=== PATIENT | female | born 1965 | race African-American/Black ===

== ENCOUNTER 2017-08-26 15:05 | Emergency (ER) | payer MEDICAID ==
[~2017-08-26] VITALS: Ht 167.6 cm; Wt 122.5 kg
[~2017-08-26 15:05] MED LIST: CALC-317 OR; CLOP75TA41; ENAL5TAB92 PO; HYDR-2595; HYDR-4663; INSLANTI; PHEN100C70; TOPI25TA32; TOPI50TA53; [UNRECOGNIZED DRUG - CODE]
[2017-08-26] MEDS ORDERED: HYDROmorphone HCL 2 MG/ML VL IV ONE ×2 (16:00→20:00)
[2017-08-26] MEDS ORDERED: ONDANSETRON HCL 4 MG/2 ML VIAL IV ONE ×2 (16:00→20:00)
[2017-08-26] MEDS ORDERED: SODIUM CHLORIDE 0.9% 1,000 ML IV ONE (16:06)
[2017-08-26 17:16] LABS: Basophils # (auto) 0.1 uL; Basophils % (auto) 1.1 % (0.0-2.0); Eosinophils # (auto) 0.4 uL; Eosinophils % (auto) 4.1 % (0.0-7.0); Hematocrit 23.4 % (36.0-46.0); Hemoglobin 7.2 g/dL (12.2-16.2); Lymphocytes # (auto) 3.3 uL; Lymphocytes % (auto) 34.5 % (10.0-50.0); Mean Corpuscular Hemoglobin 21.6 pg (28.0-32.0); Mean Corpuscular Hgb Conc. 30.9 g/dL (32.0-36.0); Mean Corpuscular Volume 69.8 fL (80.0-100.0); Mean Platelet Volume 7.6 fL (6.9-10.8); Monocytes # (auto) 0.6 uL; Monocytes % (auto) 6.2 % (0.0-12.0); Neutrophils # (auto) 5.2 uL; Neutrophils % (auto) 54.1 % (37.0-80.0); Nucleated Red Blood Cells % 0.3 %; Platelet Count (auto) 419 10^3/uL (140-450); Red Cell Distribution Width 20.6 % (11.8-14.3); White Blood Cell 9.7 10^3/uL (4.4-10.8)
[2017-08-26 17:32] LABS: Albumin 2.7 g/dL (3.4-5.0); BUN/Creatinine Ratio 13.3; Potassium 3.3 mmol/L (3.5-5.1)
[2017-08-26 17:35] LABS: Bilirubin, Total 0.2 mg/dL (0.2-1.0); Total Protein 6.7 g/dL (6.4-8.2)
[2017-08-26 17:38] LABS: Urine Bilirubin Negative (Negative); Urine Blood Negative /uL (Negative); Urine Color Yellow (Yellow); Urine Glucose Normal (Normal); Urine Ketone Negative (Negative); Urine Mucus FEW (None Seen); Urine Nitrite Negative (Negative); Urine RBC <1 /hpf (0 - 4); Urine Squamous Epithelial Cell FEW /hpf (<5); Urine Urobilinogen Normal (Negative)
[2017-08-26] MEDS ORDERED: FERROUS SULFATE 325 MG TAB PO ONE (18:15)
[2017-08-26 19:05] LABS: Anisocytosis Moderate; Hypochromia Moderate; Microcytosis Moderate; Ovalocytes FEW; Platelet Estimate Adequate; Stomatocytes Few
[2017-08-26] MEDS ORDERED: POTASSIUM CHL 10% (20 MEQ/15ML) 15ml ORAL SOLN PO ONE (20:00)
[2017-08-27] MEDS ORDERED: ONDANSETRON HCL 4 MG/2 ML VIAL IV ONE
[2017-08-27] MEDS ORDERED: HYDROmorphone HCL 2 MG/ML VL IV ONE
[2017-08-27 02:05] VITALS: BP 136/79
== END 2017-08-27 02:22 | disposition home or self-care (01) ==
LOC: EDBD 15:05 → ER 15:05
DX: D64.9 Anemia, unspecified (principal); G89.4 Chronic pain syndrome; F17.210 Nicotine dependence, cigarettes, uncomplicated; Z90.710 Acquired absence of both cervix and uterus; Z88.6 Allergy status to analgesic agent; Z91.040 Latex allergy status
CPT/HCPCS: 36415; 51702; 74176; 80053; 81001; 85025; 86850; 86860; 86880; 86900; 86901; 86905; 86906; 86971; 93005; 96361; 96374; 96375; 96376; 99285; J1170; J2405; J7030